=== PATIENT | female | born 1940 | race Caucasian/White ===

== ENCOUNTER 2017-06-24 17:46 | Emergency (ER) | payer OTHER ==
[~2017-06-24] VITALS: Ht 157.5 cm; Wt 65.0 kg
[2017-06-24 17:48] VITALS: BP 183/82; PULSE 82; RESP 14; TEMP 99.8; O2SAT 97
--- NOTE | 2017-06-24 18:13 | PD ---
HPI Chief Complaint: Injury Time Seen by Provider: 18:05 Travel History International Travel<30 days: No Contact w/Intl Traveler<30days: No Traveled to known affect area: No History of Present Illness HPI 76-year-old female presents with left hand pain. She reports that she tripped and fell prior to arrival, hitting her left hand against the sidewalk. No head trauma or loss of consciousness. She is complaining of pain and bruising to the medial left hand. Pain is mild, aggravated by palpation, no alleviating factors. Denies any other injuries and she has no other complaints at this time. [facility] Social History Alcohol Use: No Tobacco Use: No Allergies-Medications (Allergen,Severity, Reaction): Coded Allergies: Penicillins (Verified Allergy, Unknown, 06/24/17) Review of Systems Musculoskeletal: Positive: Pain Skin: Positive Other (Positive for bruising) Neurologic: No: Weakness, Dizziness, Syncope, Headache Physical Exam Narrative GENERAL: Well-developed well-nourished female no acute distress SKIN: Warm and dry. There is some bruising to the medial left hand. No open wounds. HEAD: Atraumatic. Normocephalic. CARDIOVASCULAR: Regular rate and rhythm. No murmur appreciated. RESPIRATORY: No accessory muscle use. Clear to auscultation. Breath sounds equal bilaterally. MUSCULOSKELETAL: Skin as noted above. Focal tenderness to palpation to the medial left hand overlying the fourth and fifth metacarpals. The patient maintains full range of motion of the left hand, wrist, elbow. Capillary refill less than 2 seconds all digits left hand. 2+ radial pulse. NEUROLOGICAL: Awake and alert. No obvious cranial nerve deficits. Motor grossly within normal limits. Normal speech. Data Data Last Documented VS Vital Signs Date Time Temp Pulse Resp B/P (MAP) Pulse Ox O2 Delivery O2 Flow Rate FiO2 06/24/17 18:20 Room Air 06/24/17 17:48 99.8 82 14 183/82 (115) 97 Orders Orders Hand, Complete ([id number]) (06/24/17 ) Splint Or Brace Apply/Monitor (06/24/17 18:53) Ed Discharge Order (06/24/17 18:53) MDM Medical Decision Making Medical Screen Exam Complete: Yes Emergency Medical Condition: Yes Medical Record Reviewed: Yes Differential Diagnosis Contusion, fracture, sprain Narrative Course X-ray imaging reveals a proximal left fifth metacarpal fracture. The patient will be discharged with ulnar gutter splint and outpatient follow-up. Diagnosis Primary Impression: Fracture of metacarpal of left hand, closed Referrals: Juan Gar MD,Nimo Amaya MD Additional Instructions: Follow-up with a hand specialist such as Dr. Styles or Dr. Gar. do not remove the splint. Pain medication as needed. Return for any emergent medical conditions. Med/Other Pt SpecificInfo: Prescription(s) given, Orthopedic Instructions Scripts Acetaminophen-Codeine (Tylenol-Codeine #3) 300-30 mg Tab 1 TAB PO Q4H Y for PAIN, #15 TAB 0 Refills Prov: Tatiana Castellanos MD 06/24/17 Disposition: 01 DISCHARGE HOME Condition: Stable Joaquin Rodriguez Jun 24, 2017 18:13
--- NOTE | 2017-06-24 18:49 | RADRPT ---
EXAM DATE/TIME: 06/24/2017 18:26 [facility] COMPARISON: No previous studies available for comparison. INDICATIONS : Left hand pain , Lateral side MEDICAL HISTORY : None. SURGICAL HISTORY : None. ENCOUNTER: Initial ACUITY: 1 day PAIN SCORE: 6/10 LOCATION: Left hand FINDINGS: There is a fracture of the fifth proximal metacarpal bone without any significant angulation or displ acement slight soft tissue swelling adjacent to it. Diffuse osteopenia is seen. CONCLUSION: Fifth proximal metacarpal fracture. Rebecca Bravo MD on June 24, 2017 at 18:44 Board Certified Radiologist. This report was verified electronically.
[2017-06-24] MEDS ORDERED: TYLETAB34 PO (18:55)
== END 2017-06-24 20:18 | disposition home or self-care (01) ==
LOC: NEPC 17:46
DX: S62.307A Unspecified fracture of fifth metacarpal bone, left hand, initial encounter for closed fracture (principal); Z88.0 Allergy status to penicillin; W01.0XXA Fall on same level from slipping, tripping and stumbling without subsequent striking against object, initial encounter
CPT/HCPCS: 29125; 73130

== ENCOUNTER 2017-07-17 11:12 | Emergency (ER) | payer MEDICARE ==
[~2017-07-17 11:12] MED LIST: TYLETAB34 PO
[2017-07-17 11:40] VITALS: BP 158/80; PULSE 79; RESP 16; TEMP 97.6; O2SAT 97
[2017-07-17] MEDS ORDERED: NAPR1TAB98 PO (12:01)
--- NOTE | 2017-07-17 12:44 | RADRPT ---
EXAM DATE/TIME: 07/17/2017 12:08 [facility] COMPARISON: HAND LEFT COMPLETE ([id number]), June 24, 2017, 18:26. INDICATIONS : Left hand pain from fall 3 weeks ago. Fracture of 5h metacarpal when last seen 3 weeks ago. MEDICAL HISTORY : None. SURGICAL HISTORY : None. ENCOUNTER: [facility] ACUITY: 3 weeks PAIN SCORE: 8/10 LOCATION: Left lateral hand. FINDINGS: A nondisplaced fracture is again identified at the base of the fifth metacarpal. There are no new or additional fractures. There is significant decrease bone density is noted. CONCLUSION: Persistent fracture at the base of the left fifth metacarpal without evidence of significant healing. No new fractures are noted. Real Kim MD on July 17, 2017 at 12:40 Board Certified Radiologist. This report was verified electronically.
--- NOTE | 2017-07-17 12:45 | PD ---
HPI Chief Complaint: Injury Time Seen by Provider: 11:57 Travel History International Travel<30 days: No Contact w/Intl Traveler<30days: No Traveled to known affect area: No History of Present Illness HPI 76-year-old female presents to the emergency room for evaluation of persistent left fifth finger pain for the past several days. Patient broke her left fifth proximal metacarpal about 3 weeks ago after mechanical trip and fall. She was placed in an ulnar gutter splint and told to follow-up with orthopedist. States nobody in the area would take her insurance. She took the splint off a few days ago thinking that it was healed by now and since removing it, has had worsening pain. She had no pain when the splint was on. She denies any paresthesias. She has been taking Aleve without significant relief in symptoms. She has not been taking codeine because she does not like the way it makes her feel. PFSH Past Medical History High Cholesterol: Yes Hypertension: Yes Past Surgical History Cholecystectomy: Yes Hysterectomy: Yes Social History Alcohol Use: No Tobacco Use: No Substance Use: No Allergies-Medications (Allergen,Severity, Reaction): Coded Allergies: Penicillins (Verified Allergy, Unknown, 06/24/17) Reported Meds & Prescriptions Reported Meds & Active Scripts Active Tylenol-Codeine #3 (Acetaminophen-Codeine) 300-30 mg Tab 1 Tab PO Q4H PRN Reported Aleve PM (Naproxen Sodium-Diphenhydramine) 220-25 Mg Tab 1 Tab PO HS PRN Review of Systems Except as stated in HPI: all other systems reviewed are Neg Physical Exam Narrative GENERAL: Well-nourished, well-developed female no acute distress. Afebrile. Ambulatory. SKIN: Focused skin assessment warm/dry. No erythema, ecchymosis, or increased warmth. HEAD: Normocephalic. EYES: No scleral icterus. No injection or drainage. NECK: Supple, trachea midline. No JVD or lymphadenopathy. CARDIOVASCULAR: Regular rate and rhythm without murmurs, gallops, or rubs. RESPIRATORY: Breath sounds equal bilaterally. No accessory muscle use. MUSCULOSKELETAL: No cyanosis, or edema. Full range of motion of the left hand without angulation. Tenderness to palpation of the left fifth metacarpal at the proximal aspect. There is a mild bump. Data Data Last Documented VS Vital Signs Date Time Temp Pulse Resp B/P (MAP) Pulse Ox O2 Delivery O2 Flow Rate FiO2 07/17/17 11:40 97.6 79 16 158/80 (106) 97 Orders Orders Hand, Complete ([id number]) (07/17/17 ) Splint Or Brace Apply/Monitor (07/17/17 12:38) MDM Medical Decision Making Medical Screen Exam Complete: Yes Emergency Medical Condition: Yes Medical Record Reviewed: Yes Differential Diagnosis Fracture, strain, sprain, contusion Narrative Course 76-year-old female presents to the emergency room for evaluation of persistent left fifth metacarpal pain after injuring it 3 weeks ago. She took her splint off a few days ago thinking that it was healed and then the pain began. No paresthesias. Physical exam is reassuring. No neurovascular injury. She has full range of motion of the hand with a mild deformity at the location of the previous fracture. Splint will be replaced for comfort. Patient was informed bones can take up to 6 weeks to heal and to follow-up with a primary care physician or return for worsening symptoms. She understands and agrees to plan. Diagnosis Primary Impression: Fracture of metacarpal of left hand, closed Qualified Codes: S62.347D - Nondisplaced fracture of base of fifth metacarpal bone, left hand, subsequent encounter for fracture with routine healing Referrals: Primary Care Physician Additional Instructions: Rest and drink plenty of fluids. Tylenol as directed, as needed for pain. Take codeine at night as directed, as needed for pain. Apply ice to the affected area for 20 minutes at a time, as needed for pain and swelling. Follow-up with a primary care physician. Return to the emergency room for worsening symptoms. Disposition: 01 DISCHARGE HOME Condition: Stable Rere Zaragoza Jul 17, 2017 12:45
== END 2017-07-17 13:19 | disposition home or self-care (01) ==
LOC: NEPK 11:12
DX: S62.347D Nondisplaced fracture of base of fifth metacarpal bone, left hand, subsequent encounter for fracture with routine healing (principal); I10 Essential (primary) hypertension; E78.00 Pure hypercholesterolemia, unspecified; W01.0XXD Fall on same level from slipping, tripping and stumbling without subsequent striking against object, subsequent encounter; Z88.0 Allergy status to penicillin
CPT/HCPCS: 29125; 73130